=== PATIENT | female | born 2005 | race Caucasian/White ===

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

== ENCOUNTER → 2023-01-24 | Outpatient (REF) | payer OTHER ==
[2023-01-24 18:44] LABS: BASO # 0.1 10^3/uL (0.0-0.2); EOS # 0.1 10^3/uL (0.0-0.5); EOS % 1.6 % (0.0-3.0); HEMATOCRIT 43.9 % (36.0-47.0); HEMOGLOBIN 14.1 g/dl (12.0-15.5); LYMPH # 2.1 10^3/uL (1.5-5.0); LYMPH % 33.4 % (24.0-44.0); MEAN CORPUSCULAR HEMOGLOBIN 27.6 pg (27.0-33.0); MEAN CORPUSCULAR HGB CONC 32.1 g/dl (32.0-36.5); MEAN CORPUSCULAR VOLUME 86.1 fl (80.0-96.0); MONO # 0.6 10^3/uL (0.0-0.8); MONO % 9.1 % (2.0-8.0); NEUTROPHILS # 3.4 10^3/uL (1.5-8.5); NEUTROPHILS % 54.6 % (36.0-66.0); PLATELET COUNT, AUTOMATED 283 10^3/uL (150-450); WHITE BLOOD COUNT 6.1 10^3/uL (4.0-10.0)
[2023-01-24 18:59] LABS: PERCENT SATURATION 26.8 % (13.2-45.0)
== END ==
LOC: M SFHCCLAY 13:26
PROVIDERS: ATTEND Nurse Practitioner Family
DX: E61.1 Iron deficiency (principal); G43.009 Migraine without aura, not intractable, without status migrainosus

== ENCOUNTER → 2023-06-03 | Outpatient (CLI) | payer OTHER | LOC: M PLAIMG 15:59 | PROVIDERS: ATTEND Student in an Organized Health Care Education/Training Program | DX: R68.89 Other general symptoms and signs (principal) ==

== ENCOUNTER → 2023-06-07 | Outpatient (CLI) | payer OTHER | LOC: M WHC 10:39 | PROVIDERS: ATTEND Nurse Practitioner Family | DX: N94.6 Dysmenorrhea, unspecified (principal) ==

== ENCOUNTER → 2023-08-15 | Outpatient (REF) | payer OTHER ==
[2023-08-15 17:54] LABS: BASO % 0.5 % (0.0-1.0); EOS # 0.2 10^3/uL (0.0-0.5); HEMATOCRIT 43.3 % (36.0-47.0); HEMOGLOBIN 14.6 g/dl (12.0-15.5); LYMPH # 2.7 10^3/uL (1.5-5.0); LYMPH % 36.7 % (24.0-44.0); MEAN CORPUSCULAR HEMOGLOBIN 28.6 pg (27.0-33.0); MEAN CORPUSCULAR HGB CONC 33.7 g/dl (32.0-36.5); MEAN CORPUSCULAR VOLUME 84.9 fl (80.0-96.0); MONO # 0.5 10^3/uL (0.0-0.8); MONO % 6.7 % (2.0-8.0); NEUTROPHILS % 53.4 % (36.0-66.0); PLATELET COUNT, AUTOMATED 311 10^3/uL (150-450); WHITE BLOOD COUNT 7.4 10^3/uL (4.0-10.0)
[2023-08-15 18:28] LABS: IRON (FE) 37 UG/DL (50-170)
[2023-08-15 18:30] LABS: PERCENT SATURATION 10.7 % (13.2-45.0); TOTAL IRON BINDING CAPACITY 345 UG/DL (250-425)
[2023-08-15 18:31] LABS: ALBUMIN 3.7 G/DL (3.2-5.2); ALKALINE PHOSPHATASE 75 U/L (46-116); ALT/SGPT 11 U/L (7.0-40); AST/SGOT 10 U/L (<34); BILIRUBIN,TOTAL 0.3 MG/DL (0.3-1.2); BLOOD UREA NITROGEN 8 MG/DL (9-23); CALCIUM LEVEL 8.7 MG/DL (8.5-10.1); CARBON DIOXIDE LEVEL 26 MMOL/L (20-31); CHLORIDE LEVEL 106 MMOL/L (98-107); CREATININE FOR GFR 0.61 MG/DL (0.55-1.30); FREE T4 1.04 NG/DL (0.83-1.43); GLUCOSE, FASTING 95 MG/DL (60-100); POTASSIUM SERUM 4.6 MMOL/L (3.5-5.1); SODIUM LEVEL 136 MMOL/L (136-145); THYROID STIMULATING HORMONE 0.565 uIU/ML (0.48-4.17); TOTAL PROTEIN 6.8 G/DL (5.7-8.2)
== END ==
LOC: M SFHCCLAY 10:46
PROVIDERS: ATTEND Nurse Practitioner Family
DX: L65.9 Nonscarring hair loss, unspecified (principal); E61.1 Iron deficiency; R51.9 Headache, unspecified

== ENCOUNTER → 2023-09-13 | Outpatient (REF) | payer OTHER | LOC: M SFHCCLAY 10:39 | PROVIDERS: ATTEND Nurse Practitioner Family | DX: R42 Dizziness and giddiness (principal) ==

== ENCOUNTER → 2023-11-30 | Outpatient (REF) | payer OTHER ==
[2023-11-30 11:45] LABS: BASO # 0.1 10^3/uL (0.0-0.2); BASO % 0.7 % (0.0-1.0); EOS # 0.4 10^3/uL (0.0-0.5); EOS % 4.5 % (0.0-3.0); HEMATOCRIT 42.9 % (36.0-47.0); HEMOGLOBIN 14.3 g/dl (12.0-15.5); LYMPH % 35.8 % (24.0-44.0); MEAN CORPUSCULAR HEMOGLOBIN 28.3 pg (27.0-33.0); MEAN CORPUSCULAR HGB CONC 33.3 g/dl (32.0-36.5); MEAN CORPUSCULAR VOLUME 84.8 fl (80.0-96.0); MONO # 0.8 10^3/uL (0.0-0.8); NEUTROPHILS # 4.1 10^3/uL (1.5-8.5); NEUTROPHILS % 49.5 % (36.0-66.0); PLATELET COUNT, AUTOMATED 271 10^3/uL (150-450); RED BLOOD COUNT 5.06 10^6/uL (4.00-5.40); WHITE BLOOD COUNT 8.4 10^3/uL (4.0-10.0)
[2023-11-30 12:16] LABS: IRON (FE) 41 UG/DL (50-170); PERCENT SATURATION 11.6 % (13.2-45.0); TOTAL IRON BINDING CAPACITY 354 UG/DL (250-425)
[2023-11-30 12:17] LABS: ALBUMIN 3.6 G/DL (3.2-5.2); ALKALINE PHOSPHATASE 83 U/L (46-116); ALT/SGPT 17 U/L (7.0-40); AST/SGOT < 8 U/L (<34); BILIRUBIN,TOTAL 0.3 MG/DL (0.3-1.2); BLOOD UREA NITROGEN 8 MG/DL (9-23); CARBON DIOXIDE LEVEL 27 MMOL/L (20-31); CHLORIDE LEVEL 108 MMOL/L (98-107); CREATININE FOR GFR 0.62 MG/DL (0.55-1.30); GLUCOSE, FASTING 98 MG/DL (60-100); POTASSIUM SERUM 3.9 MMOL/L (3.5-5.1); SODIUM LEVEL 140 MMOL/L (136-145); TOTAL PROTEIN 6.5 G/DL (5.7-8.2)
[2023-11-30 12:19] LABS: FREE T4 0.98 NG/DL (0.83-1.43); THYROID STIMULATING HORMONE 1.075 uIU/ML (0.48-4.17)
== END ==
LOC: M SFHCCLAY 08:24
PROVIDERS: ATTEND Nurse Practitioner Family
DX: L65.9 Nonscarring hair loss, unspecified (principal); E61.1 Iron deficiency; R51.9 Headache, unspecified; F32.1 Major depressive disorder, single episode, moderate; L70.9 Acne, unspecified; E28.2 Polycystic ovarian syndrome

== ENCOUNTER → 2024-06-11 | Outpatient (REF) | payer OTHER ==
[2024-06-11 18:37] LABS: BASO # 0.1 10^3/uL (0.0-0.2); BASO % 0.6 % (0.0-1.0); EOS # 0.1 10^3/uL (0.0-0.5); EOS % 1.6 % (0.0-3.0); HEMATOCRIT 44.5 % (36.0-47.0); HEMOGLOBIN 14.5 g/dl (12.0-15.5); LYMPH # 2.3 10^3/uL (1.5-5.0); LYMPH % 25.9 % (24.0-44.0); MEAN CORPUSCULAR HEMOGLOBIN 27.8 pg (27.0-33.0); MEAN CORPUSCULAR HGB CONC 32.6 g/dl (32.0-36.5); MEAN CORPUSCULAR VOLUME 85.4 fl (80.0-96.0); MONO # 0.5 10^3/uL (0.0-0.8); MONO % 5.9 % (2.0-8.0); NEUTROPHILS # 5.8 10^3/uL (1.5-8.5); NEUTROPHILS % 65.7 % (36.0-66.0); PLATELET COUNT, AUTOMATED 289 10^3/uL (150-450); RED BLOOD COUNT 5.21 10^6/uL (4.00-5.40); WHITE BLOOD COUNT 8.9 10^3/uL (4.0-10.0)
[2024-06-11 18:41] LABS: ALBUMIN 3.9 G/DL (3.2-5.2); ALKALINE PHOSPHATASE 82 U/L (35-104); ALT/SGPT 17 U/L (7.0-40); AST/SGOT 12 U/L (<34); BILIRUBIN,TOTAL 0.5 MG/DL (0.3-1.2); BLOOD UREA NITROGEN 11 MG/DL (9-23); CALCIUM LEVEL 9.9 MG/DL (8.5-10.1); CARBON DIOXIDE LEVEL 28 MMOL/L (20-31); CHLORIDE LEVEL 105 MMOL/L (98-107); GLUCOSE, FASTING 111 MG/DL (60-100); POTASSIUM SERUM 3.4 MMOL/L (3.5-5.1); SODIUM LEVEL 143 MMOL/L (136-145); TOTAL PROTEIN 7.6 G/DL (5.7-8.2)
[2024-06-11 18:43] LABS: HEPATITIS B SURFACE ANTIBODY NEGATIVE (POSITIVE)
[2024-06-11 18:55] LABS: HEPATITIS B SURFACE ANTIGEN NEGATIVE (NEGATIVE)
[2024-06-11 19:08] LABS: HIV 1&2 SCREEN NEGATIVE (NEGATIVE)
[2024-06-11 19:15] LABS: HEPATITIS B CORE ANTIBODY IGM NEGATIVE (NEGATIVE)
[2024-06-11 19:17] LABS: HEPATITIS C VIRUS ABY INDEX 0.02 INDEX (<0.8)
== END ==
LOC: M SFHCCLAY 14:02
PROVIDERS: ATTEND Nurse Practitioner Family
DX: Z01.84 Encounter for antibody response examination (principal); W50 Accidental hit, strike, kick, twist, bite or scratch by another person; R10.84 Generalized abdominal pain

== ENCOUNTER 2024-06-14 17:28 | Emergency (ER) | payer OTHER ==
[~2024-06-14] VITALS: Ht 170.2 cm; Wt 89.8 kg
[2024-06-14] MEDS ORDERED: FERR325T19 (18:08)
[2024-06-14 19:05] LABS: KETONE, URINE AUTO RFX NEGATIVE (NEGATIVE); LEUKOCYTE ESTERASE UR AUTO RFX NEGATIVE (NEGATIVE); NITRITE, URINE AUTO RFX NEGATIVE (NEGATIVE); RBC, URINE AUTO RFX 1 /HPF (0-3); SQUAM EPITHELIAL CELL UR AURFX 2 /HPF (0-6); WBC, URINE AUTO RFX 0 /HPF (0-3)
[2024-06-14 19:51] LABS: BASO # 0.1 10^3/uL (0.0-0.2); BASO % 0.6 % (0.0-1.0); EOS # 0.2 10^3/uL (0.0-0.5); EOS % 1.4 % (0.0-3.0); HEMATOCRIT 46.2 % (36.0-47.0); HEMOGLOBIN 15.3 g/dl (12.0-15.5); LYMPH # 3.2 10^3/uL (1.5-5.0); LYMPH % 30.2 % (24.0-44.0); MEAN CORPUSCULAR HEMOGLOBIN 28.1 pg (27.0-33.0); MEAN CORPUSCULAR HGB CONC 33.1 g/dl (32.0-36.5); MEAN CORPUSCULAR VOLUME 84.8 fl (80.0-96.0); MONO # 0.6 10^3/uL (0.0-0.8); MONO % 5.7 % (2.0-8.0); NEUTROPHILS # 6.5 10^3/uL (1.5-8.5); NEUTROPHILS % 61.8 % (36.0-66.0); PLATELET COUNT, AUTOMATED 323 10^3/uL (150-450); RED BLOOD COUNT 5.45 10^6/uL (4.00-5.40); WHITE BLOOD COUNT 10.5 10^3/uL (4.0-10.0)
[2024-06-14] MEDS: KETOROLAC 30 MG/ML 1ML VIAL IV ONE (20:36)
[2024-06-14] MEDS ORDERED: ISOVUE-370 76% 100ML VIAL As Ordered ONE (21:05)
[2024-06-14 21:54] LABS: Trichomonas vaginalis (AMP) NOT DETECTED (NEGATIVE)
[2024-06-14 22:18] LABS: GC DNA AMPLIFICATION NEGATIVE (NEGATIVE)
[2024-06-14 22:55] VITALS: BP 123/66; TEMP 97.9; O2SAT 98
== END 2024-06-14 22:57 | disposition home or self-care (01) ==
LOC: M ED 17:28
DX: R10.31 Right lower quadrant pain (principal)
CPT/HCPCS: 74177; 76830; 76856; 80047; 81001; 83605; 84702; 85025; 87210; 87661; 87810; 87850; 93976; 96374; 99284; J1885; Q9967

== ENCOUNTER → 2025-02-18 | Outpatient (CLI) | payer OTHER ==
[~2025-02-18] MED LIST: FERR325T19
[2025-02-18 14:30] LABS: ESTIMATED AVERAGE GLUCOSE 114.0 MG/DL (60-110)
[2025-02-18 14:47] LABS: FREE T4 0.98 NG/DL (0.89-1.76)
[2025-02-18 15:55] LABS: Trichomonas vaginalis (AMP) NOT DETECTED (NEGATIVE)
[2025-02-18 16:18] LABS: GC DNA AMPLIFICATION NEGATIVE (NEGATIVE)
== END ==
LOC: M PLALAB 09:33
PROVIDERS: ATTEND Nurse Practitioner Family
DX: R63.5 Abnormal weight gain (principal); N73.9 Female pelvic inflammatory disease, unspecified; Z12.4 Encounter for screening for malignant neoplasm of cervix; R87.612 Low grade squamous intraepithelial lesion on cytologic smear of cervix (LGSIL)
CPT/HCPCS: 36415; 83036; 84439; 84443; 87070; 87661; 87810; 87850; G0123

== ENCOUNTER → 2025-03-06 | Outpatient (REF) | payer OTHER | LOC: M PLALAB 14:27 | PROVIDERS: ATTEND Obstetrics & Gynecology | DX: R87.612 Low grade squamous intraepithelial lesion on cytologic smear of cervix (LGSIL) (principal); R87.613 High grade squamous intraepithelial lesion on cytologic smear of cervix (HGSIL); N72 Inflammatory disease of cervix uteri ==

== ENCOUNTER → 2025-03-12 | Outpatient (CLI) | payer OTHER | LOC: M WHC 11:26 | PROVIDERS: ATTEND Nurse Practitioner Family | DX: E28.2 Polycystic ovarian syndrome (principal); N94.6 Dysmenorrhea, unspecified; N88.8 Other specified noninflammatory disorders of cervix uteri ==